=== PATIENT | male | born 2005 | race Caucasian/White ===

== ENCOUNTER → 2023-01-23 | Outpatient (CLI) | payer OTHER, SELFPAY ==
--- NOTE | 2023-01-23 | CYST_PTH ---
PATIENT: GISELL PINTO LOC: [facility] U#:[id number] AGE/SX: 18/M ROOM: RE01/23/[address]: JOANN BANSAL MD : [id number] BED: DIS: 01/23/2023 SPEC #: [id number] RECD: 01/23/23 15:07 STATUS: IMELDA SUSAN #: [id number] SUDEEP: 01/23/23 00:[address]: JOANN BANSAL DEPT: SURGICAL PATHOLOGY RECD BY: Artemio Morrissey Tissues: CYST Procedures: Surgery Specimen Level IV HEADER OPERATION: Excisional biopsy right mandible radiolucent lesion PRE-OP DIAGNOSIS: Mandible radiolucency TISSUE SUBMITTED: Right mandible cyst MICROSCOPIC DIAGNOSIS Right mandible cyst, excisional biopsy: Acute and chronic inflammation and histiocytic reaction. See comment. GERARD:joel 01/27/2023 COMMENT The findings may represent inflamed cyst. Scant area with squamous epithelium is noted. No obvious cyst is noted. Fragments of bone are also present in the specimen. Correlation with clinical, radiologic findings and appropriate follow up are necessary. This case is discussed with Dr. Joann Bansal on 01/28/23. Case has been reviewed in consultation with Dr. Mason who concurs with the above diagnosis. IDC:AM MICROSCOPIC DESCRIPTION Slides are reviewed. GROSS DESCRIPTION Received in fixative is one container labeled with the patient's name and designated right mandible cyst. The specimen consists of multiple irregular fragments of light to dark [place] soft tissue that in aggregate measure 1.8 x 1.0 x 0.1 cm. The specimen is totally submitted in one cassette. / AM:joel 01/24/2023 TC:2 [facility]: [id number]
== END | disposition home or self-care (01) ==
LOC: LABSPEC 15:30
PROVIDERS: Referring Provider Dentist Oral and Maxillofacial Surgery; Visit Provider Dentist Oral and Maxillofacial Surgery
DX: M27.40 Unspecified cyst of jaw (principal)
CPT/HCPCS: 88304; 88305